=== PATIENT | male | born 1960 | race American Indian/Alaskan Native ===

== ENCOUNTER 2022-02-02 14:56 | Observation (INO) | payer OTHER ==
[2022-02-02 16:10] LABS: Basophils % (Auto) 0.3 % (0.0-1.8); Eosinophils # (Auto) 0.1 K/mm3 (0.0-0.4); Eosinophils % (Auto) 0.9 % (0.0-4.3); Hematocrit 38.1 % (35.5-45.6); Hemoglobin 13.4 gm/dl (11.8-15.2); Lymphocytes % (Auto) 13.5 % (13.4-35.0); Mean Corpuscular HGB Conc 35 % (32-34); Mean Corpuscular Volume 94 fl (84-94); Monocytes # (Auto) 0.4 K/mm3 (0.0-0.8); Monocytes % (Auto) 6.1 % (0.0-7.3); Platelet Count 227 K/mm3 (140-440); Red Blood Count 4.04 M/mm3 (3.65-5.03); Red Cell Distribution Width 13.7 % (13.2-15.2)
[2022-02-02 16:20] LABS: INR 0.94 (0.87-1.13)
--- NOTE | 2022-02-02 16:24 | XRay Report ---
XR chest 1V ap INDICATION / CLINICAL INFORMATION: Syncope COMPARISON: None available. FINDINGS: SUPPORT DEVICES: None. HEART / MEDIASTINUM: No significant abnormality. LUNGS / PLEURA: Lungs are clear. Costophrenic sulci are sharp. No pneumothorax. ADDITIONAL FINDINGS: No significant additional findings. IMPRESSION: 1. No acute findings. Signer Name: Ulises Inman MD Signed: 02/02/2022 4:19 PM Workstation Name: [id number]
[2022-02-02 16:59] LABS: Alanine Aminotransferase 13 units/L (7-56); Albumin 4.6 g/dL (3.9-5); BUN/Creatinine Ratio 14; Blood Urea Nitrogen 13 mg/dL (9-20); Calcium 9.8 mg/dL (8.4-10.2); Hemolysis Index 13
[2022-02-02] MEDS ORDERED: POTASSIUM CHLORIDE ER 20 MEQ TAB PO ONE (17:05)
[2022-02-02 17:21] LABS: Bilirubin,Urine NEG (Negative); Blood,Urine NEG (Negative); Color,Urine Yellow (Yellow); Mucus,Urine FEW /HPF; Urobilinogen,Urine < 2.0 mg/dL (<2.0); WBC,Urine < 1.0 /HPF (0.0-6.0)
--- NOTE | 2022-02-02 17:21 | Cat Scan Report ---
CT HEAD WITHOUT CONTRAST INDICATION / CLINICAL INFORMATION: Syncope. TECHNIQUE: All CT scans at this location are performed using CT dose reduction for ALARA by means of automated e xposure control. COMPARISON: None available. FINDINGS: HEMORRHAGE: No evidence of intracranial hemorrhage or extra-axial fluid collection. EXTRA-AXIAL SPACES: Cortical sulci, sylvian fissures and basilar cisterns have an unremarkable appear ance. VENTRICULAR SYSTEM: Focal dilatation of the posterior body and atria of the right lateral ventricle i s noted. This could be on a developmental basis. Other possible explanations for this finding would b e a large choroid plexus cyst or arachnoid cyst within the right lateral ventricle. I favor the possi bility of developmental asymmetry, however, If clinically warranted MRI brain without and with intrav enous contrast material could be considered to distinguish between these possibilities. CEREBRAL PARENCHYMA: No areas of abnormal brain parenchymal attenuation are identified. There is no i ndication of recent infarction. MIDLINE SHIFT OR HERNIATION: There is no mass effect. CEREBELLUM / BRAINSTEM: Brainstem and cerebellum have an unremarkable appearance. MIDLINE STRUCTURES:No abnormalities of the pituitary gland or pineal region are identified. INTRACRANIAL VESSELS:No abnormalities are identified on this noncontrast head CT. ORBITS: visualized portions of the orbits have an unremarkable appearance. SOFT TISSUES of HEAD: No significant abnormality. CALVARIUM: Evaluation of bone windows reveals no abnormalities. PARANASAL SINUSES / MASTOID AIR CELLS: Visualized portions of the paranasal sinuses are free from inf lammatory mucosal disease. Mastoid air cells are normally pneumatized. ADDITIONAL FINDINGS: None. IMPRESSION: 1. Asymmetry of the lateral ventricles as described in detail above. 2. Otherwise normal head CT without contrast. Signer Name: Ronan West MD Signed: 02/02/2022 5:17 PM Workstation Name: [id number]
[2022-02-02 17:27] LABS: Amphetamine Screen,Urine Negative; Benzodiazepines Screen,Urine Negative; Cocaine Screen,Urine Negative; Methadone Screen,Urine Negative; Opiate Screen,Urine Negative
--- NOTE | 2022-02-02 17:27 | Emergency Department Report ---
ED Syncope HPI - General Chief Complaint: Seizure Stated Complaint: SEIZURE Time Seen by Provider: 02/02/22 15:19 Source: patient, old records (no previous [facility] record) Exam Limitations: no limitations - History of Present Illness Initial Comments: 61-year-old male with a past medical history of hypertension and elevated cholesterol presents to the hospital complains of a syncopal episode. Patient states he remembers that his daughter was having some conflict with her over the phone. This upset him and he recalls hyperventilating, sweating profusely, and feeling tired. states that she did not witness him hyperventilating. She did witness him sweating profusely and becoming less responsive. He apparently initially closes eyes then looked upwards and gave her a blank stare but was able to intermittently talk throughout the episode although did have some mumbling and confusion. Urinary incontinence reported. Patient denies any preceding pain or shortness of breath. The last month intermittently he has been having intermittent chest pressure that is nonexertional with associated lightheadedness. He denies having associated nausea, vomiting, diaphoresis. He was instructed by his primary care doctor to contact her director of compliance for outpatient follow-up appointment. Patient has not had a stress test in many years. He is a non-smoker with a positive family history of CAD. Patient states he is feeling better at this time - Related Data Allergies/Adverse Reactions: Allergies No Known Allergies Allergy (Verified 02/02/22 14:58) ED Review of Systems ROS: Stated complaint: SEIZURE Other details as noted in HPI Comment: All other systems reviewed and negative ED Past Medical Hx - Past Medical History Hx Hypertension: Yes - Social History Smoking Status: Never Smoker Substance Use Type: None ED Physical Exam - General Limitations: No Limitations - Other Other exam information: General: No acute distress Head: Atraumatic Eyes: normal appearance ENT: Moist mucous membranes Neck: Normal appearance, no midline tenderness Chest: Clear to auscultation bilaterally CV: Regular rate and rhythm Abdomen: Soft, normal bowel sounds, nontender, nondistended, no rebound or guarding Back: Normal inspection Extremity: Normal inspection, full range of motion, no calf tenderness or leg edema Neuro: Alert O x 3, no facial asymmetry, speech clear, no gross motor sensory deficit Psych: Appropriate behavior Skin: No rash ED Course Vital Signs 02/02/22 02/02/22 02/02/22 14:56 15:14 15:16 Temperature Pulse Rate 69 77 72 Respiratory 14 17 Rate Blood Pressure Blood Pressure 124/78 [Left] O2 Sat by Pulse 99 100 100 Oximetry 02/02/22 02/02/22 02/02/22 15:25 15:30 15:46 Temperature 98.4 F Pulse Rate 78 83 Respiratory 16 12 Rate Blood Pressure 161/84 161/84 161/84 Blood Pressure [Left] O2 Sat by Pulse 100 100 98 Oximetry 02/02/22 02/02/22 02/02/22 16:00 16:16 16:30 Temperature Pulse Rate 77 84 80 Respiratory 17 12 18 Rate Blood Pressure 138/87 138/87 149/86 Blood Pressure [Left] O2 Sat by Pulse 99 100 98 Oximetry 02/02/22 17:02 Temperature Pulse Rate 79 Respiratory Rate Blood Pressure 141/91 Blood Pressure [Left] O2 Sat by Pulse Oximetry ED Medical Decision Making - Lab Data Result diagrams: 02/02/22 15:58 02/02/22 15:58 Lab Results 02/02/22 02/02/22 02/02/22 Range/Units 15:58 15:58 15:58 WBC 7.1 (4.5-11.0) K/mm3 RBC 4.04 (3.65-5.03) M/mm3 Hgb 13.4 (11.8-15.2) gm/dl Hct 38.1 (35.5-45.6) % MCV 94 (84-94) fl MCH 33 H (28-32) pg MCHC 35 H (32-34) % RDW 13.7 (13.2-15.2) % Plt Count 227 (140-440) K/mm3 Lymph % (Auto) 13.5 (13.4-35.0) % [place] % (Auto) 6.1 (0.0-7.3) % Eos % (Auto) 0.9 (0.0-4.3) % Baso % (Auto) 0.3 (0.0-1.8) % Lymph # (Auto) 1.0 L (1.2-5.4) K/mm3 [place] # (Auto) 0.4 (0.0-0.8) K/mm3 Eos # (Auto) 0.1 (0.0-0.4) K/mm3 Baso # (Auto) 0.0 (0.0-0.1) K/mm3 Seg Neutrophils % 79.2 H (40.0-70.0) % Seg Neutrophils # 5.6 (1.8-7.7) K/mm3 PT 13.6 (12.2-14.9) Sec. INR 0.94 (0.87-1.13) Sodium 138 (137-145) mmol/L Potassium 3.3 L (3.6-5.0) mmol/L Chloride 95.1 L (98-107) mmol/L Carbon Dioxide 27 (22-30) mmol/L Anion Gap 19 mmol/L BUN 13 (9-20) mg/dL Creatinine 0.9 (0.8-1.3) mg/dL Estimated GFR > 60 ml/min BUN/Creatinine Ratio 14 % Glucose 122 H (75-100) mg/dL Calcium 9.8 (8.4-10.2) mg/dL Magnesium 2.10 (1.7-2.3) mg/dL Total Bilirubin 0.90 (0.1-1.2) mg/dL AST 16 (5-40) units/L ALT 13 (7-56) units/L Alkaline Phosphatase 41 (35-129) units/L Troponin T < 0.010 (0.00-0.029) ng/mL Total Protein 7.4 (6.3-8.2) g/dL Albumin 4.6 (3.9-5) g/dL Albumin/Globulin Ratio 1.6 % Urine Color (Yellow) Urine Turbidity (Clear) Urine pH (5.0-7.0) Ur Specific [place] (1.003-1.030) Urine Protein (Negative) mg/dL Urine Glucose (UA) (Negative) mg/dL Urine Ketones (Negative) mg/dL Urine Blood (Negative) Urine Nitrite (Negative) Urine Bilirubin (Negative) Urine Urobilinogen (<2.0) mg/dL Ur Leukocyte Esterase (Negative) Urine WBC (Auto) (0.0-6.0) /HPF Urine RBC (Auto) (0.0-6.0) /HPF Urine Mucus /HPF Urine Opiates Screen Urine Methadone Screen Ur Barbiturates Screen Ur Phencyclidine Scrn Ur Amphetamines Screen U Benzodiazepines Scrn Urine Cocaine Screen 02/02/22 02/02/22 Range/Units 17:08 17:08 WBC (4.5-11.0) K/mm3 RBC (3.65-5.03) M/mm3 Hgb (11.8-15.2) gm/dl Hct (35.5-45.6) % MCV (84-94) fl MCH (28-32) pg MCHC (32-34) % RDW (13.2-15.2) % Plt Count (140-440) K/mm3 Lymph % (Auto) (13.4-35.0) % [place] % (Auto) (0.0-7.3) % Eos % (Auto) (0.0-4.3) % Baso % (Auto) (0.0-1.8) % Lymph # (Auto) (1.2-5.4) K/mm3 [place] # (Auto) (0.0-0.8) K/mm3 Eos # (Auto) (0.0-0.4) K/mm3 Baso # (Auto) (0.0-0.1) K/mm3 Seg Neutrophils % (40.0-70.0) % Seg Neutrophils # (1.8-7.7) K/mm3 PT (12.2-14.9) Sec. INR (0.87-1.13) Sodium (137-145) mmol/L Potassium (3.6-5.0) mmol/L Chloride (98-107) mmol/L Carbon Dioxide (22-30) mmol/L Anion Gap mmol/L BUN (9-20) mg/dL Creatinine (0.8-1.3) mg/dL Estimated GFR ml/min BUN/Creatinine Ratio % Glucose (75-100) mg/dL Calcium (8.4-10.2) mg/dL Magnesium (1.7-2.3) mg/dL Total Bilirubin (0.1-1.2) mg/dL AST (5-40) units/L ALT (7-56) units/L Alkaline Phosphatase (35-129) units/L Troponin T (0.00-0.029) ng/mL Total Protein (6.3-8.2) g/dL Albumin (3.9-5) g/dL Albumin/Globulin Ratio % Urine Color Yellow (Yellow) Urine Turbidity Clear (Clear) Urine pH 6.0 (5.0-7.0) Ur Specific [place] 1.013 (1.003-1.030) Urine Protein 30 mg/dl (Negative) mg/dL Urine Glucose (UA) Neg (Negative) mg/dL Urine Ketones Neg (Negative) mg/dL Urine Blood Neg (Negative) Urine Nitrite Neg (Negative) Urine Bilirubin Neg (Negative) Urine Urobilinogen < 2.0 (<2.0) mg/dL Ur Leukocyte Esterase Neg (Negative) Urine WBC (Auto) < 1.0 (0.0-6.0) /HPF Urine RBC (Auto) 3.0 (0.0-6.0) /HPF Urine Mucus Few /HPF Urine Opiates Screen Negative Urine Methadone Screen Negative Ur Barbiturates Screen Negative Ur Phencyclidine Scrn Negative Ur Amphetamines Screen Negative U Benzodiazepines Scrn Negative Urine Cocaine Screen Negative - EKG Data -: EKG Interpreted by Nh EKG shows normal: sinus rhythm, ST-T waves (no stemi) Rate: normal (71) - EKG Data When compared to previous EKG there are: previous EKG unavailable - Radiology Data Radiology results: report reviewed XR chest 1V ap INDICATION / CLINICAL INFORMATION: Syncope COMPARISON: None available. FINDINGS: SUPPORT DEVICES: None. HEART / MEDIASTINUM: No significant abnormality. LUNGS / PLEURA: Lungs are clear. Costophrenic sulci are sharp. No pneumothorax. ADDITIONAL FINDINGS: No significant additional findings. IMPRESSION: 1. No acute findings. CT HEAD WITHOUT CONTRAST INDICATION / CLINICAL INFORMATION: Syncope. TECHNIQUE: All CT scans at this location are performed using CT dose reduction for ALARA by means of automated exposure control. COMPARISON: None available. FINDINGS: HEMORRHAGE: No evidence of intracranial hemorrhage or extra-axial fluid collection. EXTRA-AXIAL SPACES: Cortical sulci, sylvian fissures and basilar cisterns have an unremarkable appearance. VENTRICULAR SYSTEM: Focal dilatation of the posterior body and atria of the right lateral ventricle is noted. This could be on a developmental basis. Other possible explanations for this finding would be a large choroid plexus cyst or arachnoid cyst within the right lateral ventricle. I favor the possibility of developmental asymmetry, however, If clinically warranted MRI brain without and with intravenous contrast material could be considered to distinguish between these possibilities. CEREBRAL PARENCHYMA: No areas of abnormal brain parenchymal attenuation are identified. There is no indication of recent infarction. MIDLINE SHIFT OR HERNIATION: There is no mass effect. CEREBELLUM / BRAINSTEM: Brainstem and cerebellum have an unremarkable appearance. MIDLINE STRUCTURES:No abnormalities of the pituitary gland or pineal region are identified. INTRACRANIAL VESSELS:No abnormalities are identified on this noncontrast head CT. ORBITS: visualized portions of the orbits have an unremarkable appearance. SOFT TISSUES of HEAD: No significant abnormality. CALVARIUM: Evaluation of bone windows reveals no abnormalities. PARANASAL SINUSES / MASTOID AIR CELLS: Visualized portions of the paranasal sinuses are free from inflammatory mucosal disease. Mastoid air cells are normally pneumatized. ADDITIONAL FINDINGS: None. IMPRESSION: 1. Asymmetry of the lateral ventricles as described in detail above. 2. Otherwise normal head CT without contrast. - Medical Decision Making 61-year male presents to the hospital with syncope/near syncopal episode prior to ED arrival. Based on my discussion I do not suspect seizure given lack of tonic-clonic movement and definite postictal period. It is possible patient could have had a a vasovagal episode however, he has been experiencing intermittent chest pain for the past month and has several cardiac risk factors without recent cardiac work-up. Patient will be admitted to the hospital for further work-up and evaluation. P.o. potassium provided for mild hypokalemia. Case d/ hospitalist Dr. Pandey for admission. Admission orders placed - Differential Diagnosis Vasovagal, arrhythmia, CO, anemia, intracranial normality, CVA/TIA, seizure Critical Care Time: No Critical care attestation.: If time is entered above; I have spent that time in minutes in the direct care of this critically ill patient, excluding procedure time. ED Disposition Clinical Impression: Syncope, Intermittent chest pain, HTN (hypertension), Elevated cholesterol, Hypokalemia Disposition: 09 ADMITTED INPATIENT Is pt being admited?: Yes Does the pt Need Aspirin: No Condition: Stable Instructions: Syncope (ED), Hypertension (ED) Time of Disposition: 17:27 (Dr pandey/hospitalist) - Assessment Assessment Interval: Baseline - Level of Consciousness 1a. Level of Consciousness: alert/keenly responsive - LOC Questions 1b. LOC Questions: answers both correctly - LOC Command 1c. LOC Commands: performs tasks correctly - Best Gaze 2. Best Gaze: normal - Visual 3. Visual: no visual loss - Facial Palsy 4. Facial Palsy: normal symmetrical movement - Motor Arm 5a. Motor Arm Left: no drift 5b. Motor Arm Right: no drift - Motor Leg 6a. Motor Leg Left: no drift 6b. Motor Leg Right: no drift - Limb Ataxia 7. Limb Ataxia: absent - Sensory 8. Sensory: normal - Best Language 9. Best Language: no aphasia - Dysarthria 10. Dysarthria: normal - Extinction and Inattention 11. Extinction/Inattention: no abnormality - Scoring Total Score: 0 Stroke Severity: No Stroke Symptoms
[2022-02-02] MEDS ORDERED: ACETAMINOPHEN 325 MG TAB PO PRN ×2 (17:29→18:55)
[2022-02-02] MEDS ORDERED: ONDANSETRON 4 MG/2 ML INJ IV PRN ×2 (17:29→18:55)
[2022-02-02] MEDS ORDERED: MORPHINE 2 MG/1 ML INJ IV PRN (17:30)
[2022-02-02 17:42] LABS: Cannabinoid Screen,Urine Positive
[2022-02-02] MEDS ORDERED: HYDROmorphone 1 MG/1 ML INJ IV PRN (18:55)
[2022-02-02] MEDS ORDERED: oxyCODONE /ACETAMINOPHEN 5-325MG TAB PO PRN (18:55)
[2022-02-02] MEDS ORDERED: SODIUM CHLORIDE 0.9% 1000 ML 1,000 ML IV SCH (19:00)
--- NOTE | 2022-02-02 19:46 | History and Physical Report ---
History of Present Illness Date of examination: 02/02/22 Date of admission: February 02, 2022 Chief complaint: Passed out while in car History of present illness: 61-year-old male with history of hypertension and hyperlipidemia presents to the hospital with chief complaint of passing out while in car. is at bedside. Apparently and her patient we are waiting outside a departmental store and the patient is in the grain combine driver seat. Patient slumped over and lost consciousness for few seconds and regained consciousness as per the . In 's words --he passed out. Patient was also diaphoretic. Patient has been having intermittent chest pain for the last 3 weeks. Nonexertional. No palpitations or shortness of breath. Urinary incontinence is reported.. During my exam patient is alert and oriented and answering all the questions - Past Medical History --Hypertension: Yes -Surgical history --none - Social History --Smoking Status: Never Smoker --Substance Use Type: None -Family history -- Htn Review of Systems ROS: Constitutional no weight loss or weight gain no fever or chills HEENT no sore throat no post nasal drip no diplopia Neck no neck stiffness no lymph gland enlargement Chest and lungs no shortness of breath cough or wheezing CVS no chest pain no diaphoresis no palpitations GI no nausea no vomiting no diarrhea Genitourinary system no dysuria no flank pain Musculoskeletal system no muscle pains no joint pains CLAIM EXAMINER syncope and loss of consciousness for few seconds Skin no rash no itching Psychiatric no depression no homicidal or suicidal tendencies Hematologic no lymphedema or bruising Endocrine no polydipsia no polyuria no cold intolerance no heat intolerance Medications and Allergies Allergies Allergy/AdvReac Type Severity Reaction Status Date / Time No Known Allergies Allergy Verified 02/02/22 14:58 Active Meds: Active Medications Acetaminophen (Acetaminophen 325 Mg Tab) 650 mg PO Q4H PRN PRN Reason: Pain MILD(1-3)/Fever >100.5/MERCER Acetaminophen (Acetaminophen 325 Mg Tab) 650 mg PO Q4H PRN PRN Reason: Pain MILD(1-3)/Fever >100.5/MERCER Famotidine (Famotidine 20 Mg/2 Ml Inj) 20 mg IV BID THO Hydromorphone HCl (Hydromorphone 1 Mg/1 Ml Inj) 0.5 mg IV Q3H PRN PRN Reason: Pain , Severe (7-10) Sodium Chloride (Nacl 0.9% 1000 Ml) 1,000 mls @ 75 mls/hr IV DIRECT THO Morphine Sulfate (Morphine 2 Mg/1 Ml Inj) 2 mg IV Q4H PRN PRN Reason: Pain, Moderate (4-6) Ondansetron HCl (Ondansetron 4 Mg/2 Ml Inj) 4 mg IV Q8H PRN PRN Reason: Nausea And Vomiting Ondansetron HCl (Ondansetron 4 Mg/2 Ml Inj) 4 mg IV Q8H PRN PRN Reason: Nausea And Vomiting Oxycodone/Acetaminophen (Oxycodone /Acetaminophen 5-325mg Tab) 1 tab PO Q6H PRN PRN Reason: Pain, Moderate (4-6) Sodium Chloride (Sodium Chloride 0.9% 10 Ml Flush Syringe) 10 ml IV BID THO Sodium Chloride (Sodium Chloride 0.9% 10 Ml Flush Syringe) 10 ml IV PRN PRN PRN Reason: LINE FLUSH Sodium Chloride (Sodium Chloride 0.9% 10 Ml Flush Syringe) 10 ml IV BID THO Sodium Chloride (Sodium Chloride 0.9% 10 Ml Flush Syringe) 10 ml IV PRN PRN PRN Reason: LINE FLUSH Exam - Constitutional Vitals: Temp Pulse Resp BP Pulse Ox 98.7 F 73 19 146/87 98 02/02/22 19:29 02/02/22 18:30 02/02/22 18:30 02/02/22 19:00 02/02/22 19:00 General appearance: Present: no acute distress, well-nourished - EENT Eyes: Present: PERRL ENT: hearing intact, clear oral mucosa - Neck Neck: Present: supple, normal ROM - Respiratory Respiratory effort: normal Respiratory: bilateral: CTA - Cardiovascular Heart rate: 78 Rhythm: regular Heart Sounds: Present: S1 & S2. Absent: rub, click - Extremities Extremities: pulses symmetrical, No edema Peripheral Pulses: within normal limits - Abdominal General gastrointestinal: Present: soft, non-tender, non-distended, normal bowel sounds Male genitourinary: Present: normal - Integumentary Integumentary: Present: clear, warm, dry - Musculoskeletal Musculoskeletal: gait normal, strength equal bilaterally - Psychiatric Psychiatric: appropriate mood/affect, intact judgment & insight - Neurologic Neurologic: CNII-XII intact, moves all extremities HEART Score - HEART Score History: Slightly suspicious Age: 45-65 Risk factors: 1-2 risk factors Troponin: Troponin T < 0.010 ng/mL (0.00-0.029) 02/02/22 15:58 Troponin: < normal limit - Critical Actions Critical Actions: 0-3 pts:0.9-1.7%risk of adverse cardiac event.Candidate for discharge Results - Labs CBC & Chem 7: 02/03/22 05:25 02/03/22 05:25 Labs: Laboratory Last Values WBC 7.1 K/mm3 (4.5-11.0) 02/02/22 15:58 RBC 4.04 M/mm3 (3.65-5.03) 02/02/22 15:58 Hgb 13.4 gm/dl (11.8-15.2) 02/02/22 15:58 Hct 38.1 % (35.5-45.6) 02/02/22 15:58 MCV 94 fl (84-94) 02/02/22 15:58 MCH 33 pg (28-32) H 02/02/22 15:58 MCHC 35 % (32-34) H 02/02/22 15:58 RDW 13.7 % (13.2-15.2) 02/02/22 15:58 Plt Count 227 K/mm3 (140-440) 02/02/22 15:58 Lymph % (Auto) 13.5 % (13.4-35.0) 02/02/22 15:58 [place] % (Auto) 6.1 % (0.0-7.3) 02/02/22 15:58 Eos % (Auto) 0.9 % (0.0-4.3) 02/02/22 15:58 Baso % (Auto) 0.3 % (0.0-1.8) 02/02/22 15:58 Lymph # (Auto) 1.0 K/mm3 (1.2-5.4) L 02/02/22 15:58 [place] # (Auto) 0.4 K/mm3 (0.0-0.8) 02/02/22 15:58 Eos # (Auto) 0.1 K/mm3 (0.0-0.4) 02/02/22 15:58 Baso # (Auto) 0.0 K/mm3 (0.0-0.1) 02/02/22 15:58 Seg Neutrophils % 79.2 % (40.0-70.0) H 02/02/22 15:58 Seg Neutrophils # 5.6 K/mm3 (1.8-7.7) 02/02/22 15:58 PT 13.6 Sec. (12.2-14.9) 02/02/22 15:58 INR 0.94 (0.87-1.13) 02/02/22 15:58 Sodium 138 mmol/L (137-145) 02/02/22 15:58 Potassium 3.3 mmol/L (3.6-5.0) L 02/02/22 15:58 Chloride 95.1 mmol/L (98-107) L 02/02/22 15:58 Carbon Dioxide 27 mmol/L (22-30) 02/02/22 15:58 Anion Gap 19 mmol/L 02/02/22 15:58 BUN 13 mg/dL (9-20) 02/02/22 15:58 Creatinine 0.9 mg/dL (0.8-1.3) 02/02/22 15:58 Estimated GFR > 60 ml/min 02/02/22 15:58 BUN/Creatinine Ratio 14 % 02/02/22 15:58 Glucose 122 mg/dL (75-100) H 02/02/22 15:58 Calcium 9.8 mg/dL (8.4-10.2) 02/02/22 15:58 Magnesium 2.10 mg/dL (1.7-2.3) 02/02/22 15:58 Total Bilirubin 0.90 mg/dL (0.1-1.2) 02/02/22 15:58 AST 16 units/L (5-40) 02/02/22 15:58 ALT 13 units/L (7-56) 02/02/22 15:58 Alkaline Phosphatase 41 units/L (35-129) 02/02/22 15:58 Troponin T < 0.010 ng/mL (0.00-0.029) 02/02/22 15:58 Total Protein 7.4 g/dL (6.3-8.2) 02/02/22 15:58 Albumin 4.6 g/dL (3.9-5) 02/02/22 15:58 Albumin/Globulin Ratio 1.6 % 02/02/22 15:58 Urine Color Yellow (Yellow) 02/02/22 17:08 Urine Turbidity Clear (Clear) 02/02/22 17:08 Urine pH 6.0 (5.0-7.0) 02/02/22 17:08 Ur Specific [place] 1.013 (1.003-1.030) 02/02/22 17:08 Urine Protein 30 mg/dl mg/dL (Negative) 02/02/22 17:08 Urine Glucose (UA) Neg mg/dL (Negative) 02/02/22 17:08 Urine Ketones Neg mg/dL (Negative) 02/02/22 17:08 Urine Blood Neg (Negative) 02/02/22 17:08 Urine Nitrite Neg (Negative) 02/02/22 17:08 Urine Bilirubin Neg (Negative) 02/02/22 17:08 Urine Urobilinogen < 2.0 mg/dL (<2.0) 02/02/22 17:08 Ur Leukocyte Esterase Neg (Negative) 02/02/22 17:08 Urine WBC (Auto) < 1.0 /HPF (0.0-6.0) 02/02/22 17:08 Urine RBC (Auto) 3.0 /HPF (0.0-6.0) 02/02/22 17:08 Urine Mucus Few /HPF 02/02/22 17:08 Urine Opiates Screen Negative 02/02/22 17:08 Urine Methadone Screen Negative 02/02/22 17:08 Ur Barbiturates Screen Negative 02/02/22 17:08 Ur Phencyclidine Scrn Negative 02/02/22 17:08 Ur Amphetamines Screen Negative 02/02/22 17:08 U Benzodiazepines Scrn Negative 02/02/22 17:08 Urine Cocaine Screen Negative 02/02/22 17:08 U Marijuana (THC) Screen Positive 02/02/22 17:08 Drugs of Abuse Note Disclamer 02/02/22 17:08 Short CBC 02/02/22 02/03/22 Range/Units 15:58 05:25 WBC 7.1 5.5 (4.5-11.0) K/mm3 Hgb 13.4 13.2 (11.8-15.2) gm/dl Hct 38.1 38.7 (35.5-45.6) % Plt Count 227 241 (140-440) K/mm3 BMP 02/02/22 02/03/22 15:58 05:25 Sodium 138 142 Potassium 3.3 L 3.6 Chloride 95.1 L 100.9 Carbon Dioxide 27 28 BUN 13 12 Creatinine 0.9 1.0 Glucose 122 H 99 Calcium 9.8 9.3 Cardiac Enzymes 02/02/22 Range/Units 15:58 Troponin T < 0.010 (0.00-0.029) ng/mL Liver Function 02/02/22 02/03/22 Range/Units 15:58 05:25 Total Bilirubin 0.90 1.20 (0.1-1.2) mg/dL AST 16 15 (5-40) units/L ALT 13 11 (7-56) units/L Alkaline Phosphatase 41 40 (35-129) units/L Albumin 4.6 4.4 (3.9-5) g/dL Urine 02/02/22 Range/Units 17:08 Urine Color Yellow (Yellow) Urine pH 6.0 (5.0-7.0) Ur Specific [place] 1.013 (1.003-1.030) Urine Protein 30 mg/dl (Negative) mg/dL Urine Glucose (UA) Neg (Negative) mg/dL Assessment and Plan Advance Directives: Yes (Full code) VTE prophylaxis?: Chemical Plan of care discussed with patient/family: Yes - Patient Problems (1) Syncope and collapse Current Visit: Yes Status: Acute Plan to address problem: Patient passed out and also lost consciousness briefly Was diaphoretic No chest pain Work-up for syncope Echocardiogram and carotid duplex scan Serial troponins Lexiscan if necessary (2) Acute coronary syndrome Current Visit: Yes Status: Acute Plan to address problem: History more in favor of atypical chest pain Serial troponins Lexiscan in a.m. (3) Hypertension Current Visit: Yes Status: Chronic Qualifiers: Hypertension type: primary hypertension Qualified Code(s): I10 - Essential (primary) hypertension Plan to address problem: Continue antihypertensive (4) DVT prophylaxis Current Visit: Yes Status: Acute Plan to address problem: On anticoagulation GI prophylaxis (5) Advance care planning Current Visit: Yes Status: Acute Plan to address problem: Disease education conducted, care plan discussed, diagnosis discussed, concerns discussed. Patient is full code. Patient acknowledges understanding and agreement with care plan. +30 minutes.
[2022-02-02] MEDS: FAMOTIDINE 20 MG/2 ML INJ IV SCH (21:03)
[2022-02-03 05:50] LABS: Basophils % (Auto) 0.4 % (0.0-1.8); Eosinophils # (Auto) 0.2 K/mm3 (0.0-0.4); Eosinophils % (Auto) 4.4 % (0.0-4.3); Hematocrit 38.7 % (35.5-45.6); Hemoglobin 13.2 gm/dl (11.8-15.2); Lymphocytes # (Auto) 1.2 K/mm3 (1.2-5.4); Lymphocytes % (Auto) 21.3 % (13.4-35.0); Mean Corpuscular HGB Conc 34 % (32-34); Mean Corpuscular Volume 96 fl (84-94); Monocytes # (Auto) 0.5 K/mm3 (0.0-0.8); Monocytes % (Auto) 8.4 % (0.0-7.3); Platelet Count 241 K/mm3 (140-440); Red Blood Count 4.04 M/mm3 (3.65-5.03); Red Cell Distribution Width 13.9 % (13.2-15.2)
[2022-02-03 06:11] LABS: Alanine Aminotransferase 11 units/L (7-56); Albumin 4.4 g/dL (3.9-5); BUN/Creatinine Ratio 12; Blood Urea Nitrogen 12 mg/dL (9-20); Calcium 9.3 mg/dL (8.4-10.2); Hemolysis Index 8
[2022-02-03] MEDS ORDERED: REGADENOSON 0.4 MG/5 ML INJ IV ONE (09:00)
--- NOTE | 2022-02-03 09:01 | Consultation ---
History of Present Illness Reason for Consult: pt. could not be located on floor and was discharged Medications and Allergies Allergies Allergy/AdvReac Type Severity Reaction Status Date / Time No Known Allergies Allergy Verified 02/02/22 14:58 Active Meds: Active Medications Acetaminophen (Acetaminophen 325 Mg Tab) 650 mg PO Q4H PRN PRN Reason: Pain MILD(1-3)/Fever >100.5/MERCER Aspirin (Aspirin 81 Mg Tab Chew) 81 mg PO QDAY [facility] Famotidine (Famotidine 20 Mg/2 Ml Inj) 20 mg IV BID THO Last Admin: 02/02/22 21:03 Dose: 20 mg Hydromorphone HCl (Hydromorphone 1 Mg/1 Ml Inj) 0.5 mg IV Q3H PRN PRN Reason: Pain , Severe (7-10) Morphine Sulfate (Morphine 2 Mg/1 Ml Inj) 2 mg IV Q4H PRN PRN Reason: Pain, Moderate (4-6) Ondansetron HCl (Ondansetron 4 Mg/2 Ml Inj) 4 mg IV Q8H PRN PRN Reason: Nausea And Vomiting Ondansetron HCl (Ondansetron 4 Mg/2 Ml Inj) 4 mg IV Q8H PRN PRN Reason: Nausea And Vomiting Oxycodone/Acetaminophen (Oxycodone /Acetaminophen 5-325mg Tab) 1 tab PO Q6H PRN PRN Reason: Pain, Moderate (4-6) Regadenoson (Regadenoson 0.4 Mg/5 Ml Inj) 0.4 mg IV ONCE ONE Stop: 02/03/22 09:01 Sodium Chloride (Sodium Chloride 0.9% 10 Ml Flush Syringe) 10 ml IV BID [facility] Sodium Chloride (Sodium Chloride 0.9% 10 Ml Flush Syringe) 10 ml IV PRN PRN PRN Reason: LINE FLUSH Physical Examination - Vital Signs Vital Signs: Vital Signs Pulse BP Pulse Ox 69 124/78 99 02/02/22 14:56 02/02/22 14:56 02/02/22 14:56 Results - Laboratory Findings CBC and BMP: 02/03/22 05:25 02/03/22 05:25 Abnormal Lab Findings: Abnormal Labs 02/02/22 02/02/22 02/03/22 15:58 15:58 05:25 MCV 96 H MCH 33 H 33 H MCHC 35 H Nelson % (Auto) 8.4 H Eos % (Auto) 4.4 H Lymph # (Auto) 1.0 L Seg Neutrophils % 79.2 H Potassium 3.3 L Chloride 95.1 L Glucose 122 H
--- NOTE | 2022-02-03 09:38 | Vascular Lab Report ---
DUPLEX DOPPLER ULTRASOUND CAROTID, BILATERAL INDICATION / CLINICAL INFORMATION: Syncope. COMPARISON: None available. FINDINGS: RIGHT CAROTID: - PLAQUE ESTIMATE (%): < 50% - CCA velocity: 100.5 cm/sec. - ICA peak systolic velocity: 94.5 cm/sec. - ICA/CCA PSV Ratio: 0.9 Right Vertebral Artery: Antegrade flow. LEFT CAROTID: - PLAQUE ESTIMATE: < 50% - CCA velocity: 85.6 cm/sec. - ICA peak systolic velocity: 104.4 cm/sec. - ICA/CCA PSV Ratio: 1.22 Left Vertebral Artery: Antegrade flow. IMPRESSION: 1. Right Internal Carotid Artery: Less than 50% diameter stenosis. 2. Left Internal Carotid Artery: Less than 50% diameter stenosis. Velocity criteria are extrapolated from diameter data as defined by the Society of Radiologists in Ul trasound Consensus Conference, Radiology 2003; 229;340-346. NO STENOSIS (NORMAL) * Plaque = none; ICA PSV < 125 cm/sec; ICA/CCA PSV Ratio < 2.0 <50% STENOSIS * Plaque < 50%; ICA PSV < 125 cm/sec; ICA/CCA PSV Ratio < 2.0 50-69% STENOSIS * Plaque > 50%; ICA PSV = 125-230 cm/sec; ICA/CCA PSV Ratio = 2.0-4.0 >70% BUT <100% STENOSIS * Plaque > 50%; ICA PSV > 230 cm/sec; ICA/CCA PSV Ratio > 4.0 NEAR OCCLUSION * Plaque = visible lumen; ICA PSV = high/low/none; ICA/CCA PSV Ratio = variable TOTAL OCCLUSION * Plaque = no lumen; ICA PSV = none; ICA/CCA PSV Ratio = N/A Signer Name: Lobo Briceno MD Signed: 02/03/2022 9:34 AM Workstation Name: [id number]
[2022-02-03] MEDS ORDERED: ASPIRIN 81 MG TAB CHEW PO SCH (10:00)
--- NOTE | 2022-02-03 10:29 | Consultation ---
History of Present Illness Consult date: 02/03/22 Requesting physician: SARAH BROWN Consult reason: other (Intermittent chest pain and syncope) History of present illness: Patient is 61-year-old male with a past medical history of hypertension, anxie ty, and hyperlipidemia who presented to the ED for complaint of passing out yesterday. Patient reports that he was sitting down in the car and lost consciousness after hearing his daughter and her have been arguing. Patient reports that during the argument he felt himself breathing fast, became diaphoretic, and became anxious. Furthermore patient reports during this episode he had urinary incontinence. Per documentation the reported patient had a blank stare and was intermittently able to mumble/speak. EMS was called and patient was transported to the ED for further evaluation. Of note patient reports that intermittently over the last month he has had some chest pain. He states that he his primary care provider had referred him to a hardboard grinder however he has not had the opportunity to follow-up with 1. He reports that during this episode he denies any complaints of chest pain, nausea, vomiting, or shortness of breath. Patient is previously unknown to our practic e. Cardiology is consulted for syncope and chest pain Past History Past Medical History: hypertension, hyperlipidemia, other (Anxiety) Past Surgical History: No surgical history Social history: no significant social history Family history: CAD, cancer, other (Dementia) Medications and Allergies Allergies Allergy/AdvReac Type Severity Reaction Status Date / Time No Known Allergies Allergy Verified 02/02/22 14:58 Active Meds: Active Medications Acetaminophen (Acetaminophen 325 Mg Tab) 650 mg PO Q4H PRN PRN Reason: Pain MILD(1-3)/Fever >100.5/MERCER Aspirin (Aspirin 81 Mg Tab Chew) 81 mg PO QDAY [facility] Famotidine (Famotidine 20 Mg/2 Ml Inj) 20 mg IV BID [facility] Last Admin: 02/02/22 21:03 Dose: 20 mg Hydromorphone HCl (Hydromorphone 1 Mg/1 Ml Inj) 0.5 mg IV Q3H PRN PRN Reason: Pain , Severe (7-10) Morphine Sulfate (Morphine 2 Mg/1 Ml Inj) 2 mg IV Q4H PRN PRN Reason: Pain, Moderate (4-6) Ondansetron HCl (Ondansetron 4 Mg/2 Ml Inj) 4 mg IV Q8H PRN PRN Reason: Nausea And Vomiting Ondansetron HCl (Ondansetron 4 Mg/2 Ml Inj) 4 mg IV Q8H PRN PRN Reason: Nausea And Vomiting Oxycodone/Acetaminophen (Oxycodone /Acetaminophen 5-325mg Tab) 1 tab PO Q6H PRN PRN Reason: Pain, Moderate (4-6) Sodium Chloride (Sodium Chloride 0.9% 10 Ml Flush Syringe) 10 ml IV BID THO Sodium Chloride (Sodium Chloride 0.9% 10 Ml Flush Syringe) 10 ml IV PRN PRN PRN Reason: LINE FLUSH Review of Systems Constitutional: no weight loss, no weight gain Ears, nose, mouth and throat: no ear discharge, no nasal discharge, no sinus pressure, no sinus pain Cardiovascular: chest pain (Intermittent for about a month), no orthopnea, no palpitations, no shortness of breath, no dyspnea on exertion Respiratory: no shortness of breath, no dyspnea on exertion Gastrointestinal: no abdominal pain, no nausea, no vomiting Musculoskeletal: no neck stiffness, no neck pain, no arm numbness/tingling Integumentary: no rash, no pruritis, no redness Neurological: syncope Psychiatric: anxiety, no memory loss, no change in sleep habits Endocrine: no cold intolerance, no heat intolerance Hematologic/Lymphatic: no easy bruising, no easy bleeding Physical Examination Vital Signs Pulse BP Pulse Ox 69 124/78 99 02/02/22 14:56 02/02/22 14:56 02/02/22 14:56 General appearance: no acute distress Neck: Positive: trachea midline Cardiac: Positive: Reg Rate and Rhythm Lungs: Positive: Normal Breath Sounds Neuro: Positive: Grossly Intact Abdomen: Positive: Soft, Active Bowel Sounds Skin: Negative: Rash, Suspicious Lesions, Ulceration Extremities: Present: upper extr. pulses. Absent: edema Results 02/03/22 05:25 02/03/22 05:25 Cardiac Enzymes 02/02/22 02/03/22 Range/Units 15:58 05:25 AST 16 15 (5-40) units/L Coagulation 02/02/22 Range/Units 15:58 PT 13.6 (12.2-14.9) Sec. INR 0.94 (0.87-1.13) CBC 02/02/22 02/03/22 Range/Units 15:58 05:25 WBC 7.1 5.5 (4.5-11.0) K/mm3 RBC 4.04 4.04 (3.65-5.03) M/mm3 Hgb 13.4 13.2 (11.8-15.2) gm/dl Hct 38.1 38.7 (35.5-45.6) % Plt Count 227 241 (140-440) K/mm3 Lymph # (Auto) 1.0 L 1.2 (1.2-5.4) K/mm3 [place] # (Auto) 0.4 0.5 (0.0-0.8) K/mm3 Eos # (Auto) 0.1 0.2 (0.0-0.4) K/mm3 Baso # (Auto) 0.0 0.0 (0.0-0.1) K/mm3 Comprehensive Metabolic Panel 02/02/22 02/03/22 Range/Units 15:58 05:25 Sodium 138 142 (137-145) mmol/L Potassium 3.3 L 3.6 (3.6-5.0) mmol/L Chloride 95.1 L 100.9 (98-107) mmol/L Carbon Dioxide 27 28 (22-30) mmol/L BUN 13 12 (9-20) mg/dL Creatinine 0.9 1.0 (0.8-1.3) mg/dL Glucose 122 H 99 (75-100) mg/dL Calcium 9.8 9.3 (8.4-10.2) mg/dL AST 16 15 (5-40) units/L ALT 13 11 (7-56) units/L Alkaline Phosphatase 41 40 (35-129) units/L Total Protein 7.4 7.0 (6.3-8.2) g/dL Albumin 4.6 4.4 (3.9-5) g/dL - Imaging and Cardiology Echo: pending EKG interpretations - Telemetry EKG Rhythm: Sinus Rhythm - EKG Sinus rhythms and dysrhythmias: sinus rhythm Assessment and Plan Patient is 61-year-old male with a past medical history of hypertension, anxiety, and hyperlipidemia who presented to the ED for complaint of passing out yesterday Syncope-neurology following Intermittent chest pain Hypertension Anxiety Hyperlipidemia Echo 02/02/2022-EF 55 to 60% by visual systolic function is normal. No aortic valve stenosis. No aortic regurgitation. Trace mitral regurgitation. Trace tricuspid regurgitation. Trace pulmonic regurgitation Lexiscan MPI stress test 02/03/2022-no scintigraphic evidence for myocardial ischemia or scar normal LV size and function with no regional wall abnormal Plan: EKG shows sinus rhythm rate 77 with no acute ischemic changes. Troponins negative x2. Patient remains completely chest pain-free. AMI ruled Echo results noted above Stress tests results noted above Patient had normal echo and stress and remains chest pain-free Cardiac status otherwise stable Patient to follow-up with their primary hardboard grinder in 1 to 2 weeks after discharge Patient in conjunction with Dr. Sheriff who agrees with this plan of care - Patient Problems (1) HTN (hypertension) Status: Acute (2) Intermittent chest pain Status: Acute (3) Syncope Status: Acute (4) Hypertension Status: Chronic Qualifiers: Hypertension type: primary hypertension Qualified Code(s): I10 - Essential (primary) hypertension
[2022-02-03 11:20] VITALS: BP 154/85
--- NOTE | 2022-02-03 12:05 | Nuclear Medicine Report ---
APPROVED REPORT Exam: Nuclear Stress Test Indication: Chest pain [facility] Ht: 5 ft 10 in Wt: 162 lbs BSA: 1.91 m2 HR: 78 bpmBP: 133/92 mmHgBMI: 23.24 Rhythm: SINUS RHYTHM, IRBBB, NS TWA Stress Test Details Stress Test: Pharmacologic stress testing performed using 0.4 mg of regadenoson per 5 mL given IV over 10 seconds. Reason for pharmacologic stress test: physical limitation. HR Resting HR: 78 bpm Max HR Achieved: 125 bpm Max Heart Rate (APMHR): 159.851405 bpm Target HR (85% APMHR): 135.594522 bpm % of APMHR: 78.62 Recovery HR: 122 bpm BP Resting BP: 133/92 mmHg Max BP: 196/122 mmHg Recovery BP: 195/122 mmHg ECG Resting ECG: Sinus Rhythm Stress ECG: Sinus Tachycardia Clinical Reason for Termination: Completed protocol Stress Symptoms: None Overall Exercise Capacity for Age: Normal NM EXAM: Myocardial Perfusion REST/STRESS Imaging Protocol: Rest Tc-99m/Stress Tc-99m 1 day Resting Data Rest SPECT myocardial perfusion imaging was performed in supine position 45 minutes following the intravenous injection of 10 mCi of Tc-99m Myoview. Time of rest injection: 07:00: Pharmacologic Stress Pharmacologic stress test was performed by injecting Regadenoson 0.4 mg IV push followed by the intravenous injection of 28 mCi of Tc-99m Myoview. Time of stress injection: 11:00 Gated Stress SPECT was performed 30 minutes after stress injection. The images were gated to evaluate regional wall motion and calculate left ventricular ejection fraction. Study Quality Study: excellent Lung Uptake: Normal Study Data TID = 1.00. Perfusion Wall Motion The rest and stress images show normal left ventricular wall motion. Nuclear Conclusion ECG Findings: negative for ischemia Clinical Findings: negative for ischemia Nuclear Findings: negative for ischemia Exercise Capacity: not assessed Left Ventricular Function: normal Normal study. No scintigraphic evidence for myocardial ischemia or scar. Normal left ventricular size and function with no regional wall motion abnormalities.
--- NOTE | 2022-02-03 12:11 | Discharge Summary ---
Providers - Providers Date of Admission: 02/02/22 17:30 Date of discharge: 02/03/22 Attending physician: SARAH BROWN MD 02/03/22 08:13 Consult to Physician [CONS] Routine Comment: Consulting Provider: CATY GARCÍA Physician Instructions: Reason For Exam: Intermittent chest pain + syncope Hospitalization Reason for admission: Vasovagal syncope, atypical chest pain Condition: Stable Pertinent studies: Reviewed. Procedures: Myocardial perfusion scan Hospital course: Patient 61-year-old female past medical history hypertension, anxiety, hyperlipidemia who presented to the ED with complaints of syncopized yesterday while listening to his daughter and son-in-law argue in their vehicle. Patient describes breathing fast, becoming diaphoretic, becoming anxious. The patient's is present and described him as having a blank stare and being unable to speak. Patient was transferred to the ED via EMS. On further questioning, the patient endorsed having episodes of atypical chest pain in the past He endorses primary care provider referring him to a process line operator; however, he has not been able to follow-up yet. On presentation, the patient was found to be hemodynamically stable, and cardiology was consulted for further management. TTE revealed EF 55-60% with normal size LV, normal LV systolic function, and RVSP of 26 mmHg. Patient underwent a myocardial perfusion scan that was unremarkable. Neurology was consulted for management. Patient remains hemodynamically stable. It is presumed that the patient had a vasovagal episode. The patient is medically clear for discharge. Disposition: 01 HOME / SELF CARE / HOMELESS Final Discharge Diagnosis (Prints w/discharge instructions): Vasovagal syncope, anxiety, hypertension, atypical chest pain Time spent for discharge: 45 min Core Measure Documentation - Palliative Care Palliative Care/ Comfort Measures: Not Applicable - Core Measures Any of the following diagnoses?: none Exam - Constitutional Vitals: Temp Pulse Resp BP Pulse Ox 98.7 F 81 18 154/85 99 02/03/22 07:59 02/03/22 07:59 02/03/22 07:59 02/03/22 11:06 02/03/22 07:59 General appearance: Present: no acute distress, well-nourished - EENT Eyes: Present: PERRL, EOM intact ENT: hearing intact, clear oral mucosa, dentition normal - Neck Neck: Present: supple, normal ROM - Respiratory Respiratory effort: normal Respiratory: bilateral: CTA - Cardiovascular Rhythm: regular Heart Sounds: Present: S1 & S2 - Extremities Extremities: no ischemia, pulses intact, pulses symmetrical, No edema, normal temperature, normal color, Full ROM Peripheral Pulses: within normal limits - Abdominal General gastrointestinal: Present: soft, non-tender, non-distended, normal bowel sounds Male genitourinary: Present: deferred - Rectal Rectal Exam: deferred - Integumentary Integumentary: Present: clear, warm, dry - Musculoskeletal Musculoskeletal: strength equal bilaterally - Psychiatric Psychiatric: appropriate mood/affect, intact judgment & insight, memory intact, cooperative - Neurologic Neurologic: CNII-XII intact, moves all extremities - Allied Health Allied health notes reviewed: nursing Plan Activity: advance as tolerated Diet: low salt Additional Instructions: Patient 61-year-old female past medical history hypertension, anxiety, hyperlipidemia who presented to the ED with complaints of syncopized yesterday while listening to his daughter and son-in-law argue in their vehicle. Patient describes breathing fast, becoming diaphoretic, becoming anxious. The patient's is present and described him as having a blank stare and being unable to speak. Patient was transferred to the ED via EMS. On further questioning, the patient endorsed having episodes of atypical chest pain in the past He endorses primary care provider referring him to a process line operator; however, he has not been able to follow-up yet. On presentation, the patient was found to be hemodynamically stable, and cardiology was consulted for further management. TTE revealed EF 55-60% with normal size LV, normal LV systolic function, and RVSP of 26 mmHg. Patient underwent a myocardial perfusion scan that was unremarkable. Neurology was consulted for management. Patient remains hemodynamically stable. It is presumed that the patient had a vasovagal episode. The patient is medically clear for discharge. Care Plan Goals: Patient is medically cleared for discharge. Assessment: Patient 61-year-old female past medical history hypertension, anxiety, hyperlipidemia who presented to the ED with complaints of syncopized yesterday while listening to his daughter and son-in-law argue in their vehicle. Patient describes breathing fast, becoming diaphoretic, becoming anxious. The patient's is present and described him as having a blank stare and being unable to speak. Patient was transferred to the ED via EMS. On further questioning, the patient endorsed having episodes of atypical chest pain in the past He endorses primary care provider referring him to a process line operator; however, he has not been able to follow-up yet. On presentation, the patient was found to be hemodynamically stable, and cardiology was consulted for further management. TTE revealed EF 55-60% with normal size LV, normal LV systolic function, and RVSP of 26 mmHg. Patient underwent a myocardial perfusion scan that was unremarkable. Neurology was consulted for management. Patient remains hemodynamically stable. It is presumed that the patient had a vasovagal episode. The patient is medically clear for discharge. Follow up with: MYA PIERRE [Other] - 7 Days
[2022-02-03] MEDS: FAMOTIDINE 20 MG/2 ML INJ IV SCH (12:12)
== END 2022-02-03 13:49 | disposition home or self-care (01) ==
LOC: ED 14:56 → INTOOBSV 17:30 → 4A 17:30
PROVIDERS: ADMIT Internal Medicine; ATTEND Student in an Organized Health Care Education/Training Program
DX: R55 Syncope and collapse (principal); I10 Essential (primary) hypertension; R07.89 Other chest pain; I24.9 Acute ischemic heart disease, unspecified; E78.5 Hyperlipidemia, unspecified; E78.00 Pure hypercholesterolemia, unspecified; F41.9 Anxiety disorder, unspecified; E87.6 Hypokalemia; Z79.82 Long term (current) use of aspirin; Z79.899 Other long term (current) drug therapy
CPT/HCPCS: 36415; 70450; 71045; 78452; 80053; 80307; 81001; 83735; 84484; 85025; 85610; 93005; 93017; 93880; 96374; 96376; 99285; C8929; G0378; J2785; J3490; 93306